=== PATIENT | male | born 2000 | race Caucasian/White ===

== ENCOUNTER 2021-03-13 18:46 | Emergency (ER) | payer OTHER, SELFPAY ==
[2021-03-13 18:53] VITALS: BP 136/73; PULSE 65; RESP 16; TEMP 36.4; O2SAT 100
[2021-03-13] MEDS: PROPARACAINE 0.5% OPHTH SOL 1 DROPS EYE-LEFT (20:14)
[2021-03-13] MEDS: FLUORESCEIN 1 MG STRIP EYE-BOTH (20:14)
--- NOTE | 2021-03-13 20:55 | ED.GENADULT ---
HPI - General Adult General Chief complaint: Eye Problems Stated complaint: lt eye probable foreign body Time Seen by Provider: 03/13/21 19:50 Source: patient Mode of arrival: Ambulatory History of Present Illness HPI narrative: Patient is a 20-year-old male here for evaluation of what he states is a foreign body to his left eye. He started noticing at earlier this afternoon. He has been working on his car the past couple days. When he started noticing it today he was not doing any hammering or drilling but he did do some of this yesterday. He does not were glasses or contacts. No prior eye surgery. Has not tried anything for the symptoms prior to arrival. Related Data Previous Rx's Medication Instructions Recorded erythromycin 5 mg/gram (0.5 %) eye 0.5 inch EYE-LEFT TID 3 Days #3.5 g 03/13/21 ointment Allergies Allergy/AdvReac Type Severity Reaction Status Date / Time No Known Drug Allergies Allergy Unverified 11/25/20 15:17 Review of Systems Constitutional Constitutional: Reports system reviewed and no additional complaints, except as documented Eyes Eyes: Reports as per HPI ENT Ears, Nose, Mouth, and Throat: Reports system reviewed and no additional complaints, except as documented Integumentary/Breasts Skin/Breast: Reports system reviewed and no additional complaints, except as documented Hematologic/Lymphatic On Anticoagulants: No Patient History Medical History Healthy adult Social History Smoking Status: Current every day smoker Smoking Status: Current every day smoker tobacco type: vaping Exam Initial Vital Signs Initial Vital Signs: Vital Signs Temperature 97.5 F L 03/13/21 18:53 Pulse Rate 65 03/13/21 18:53 Respiratory Rate 16 03/13/21 18:53 Blood Pressure 136/73 03/13/21 18:53 Pulse Oximetry 100 03/13/21 18:53 Const General: cooperative and healthy appearing HENVA Head: normal to inspection Nose: external nose normal Face and sinus: normal facial exam Eyes General: appearance normal, both eyes and all related structures Periorbital: periorbital findings normal Eyelids: eyelids normal Conjunctivae: conjunctivae normal Cornea: corneas abnormal on the left fluorescein used and foreign body metallic and with rust ring present and fluorescein used Pupils: PERRL EOM: EOM intact bilaterally Neck Neck: normal visual inspection Resp Effort & Inspection: normal respiratory effort Cardio Rate: regular rate Skin General: no rashes or lesions noted Neuro General: patient alert, patient awake and moves all extremities Extrem General: normal to inspection Psych Appearance: grossly normal Procedures Foreign Body EYE Time Out performed: Yes Location: eye (L) Topical anesthetic used: proparacaine Foreign body: metal Evidence of corneal penetration: No Technique: needle and electric jaime Procedure performed under: slit-lamp Post-procedure medication: ophthalmic antibiotic Patient tolerated procedure: well and no complications Course Orders Ordered: Discontinued Medications Erythromycin (Erythromycin Ophth 1 Gm Oint) 1 applic EYE-LEFT NOW ONE Stop: 03/13/21 20:56 Last Admin: 03/13/21 21:03 Dose: 1 applic Documented by: DAMION Fluorescein Sodium (Fluorescein 1 Mg Strip) 1 mg EYE-BOTH NOW ONE Stop: 03/13/21 19:51 Last Admin: 03/13/21 20:14 Dose: 1 mg Documented by: DAMION Proparacaine HCl (Proparacaine 0.5% Ophth Shanika) 1 drops EYE-LEFT NOW ONE Stop: 03/13/21 18:56 Last Admin: 03/13/21 20:14 Dose: 1 drop Documented by: DAMION Vital Signs Vital signs: Vital Signs - 8 hr 03/13/21 18:53 Temperature 97.5 F L Pulse Rate 65 Respiratory Rate 16 Blood Pressure 136/73 Pulse Oximetry 100 Medical Decision Making MDM Narrative Medical decision making narrative: Easily identifiable foreign body in the left eye. Is located at the 7 o'clock position. Does appear to be metal. Initial attempt to remove it with a cotton tip applicator was unsuccessful. It was then removed under direct visualization with the slit lamp with a needle and a bur. There was no residual rust ring. No other foreign bodies were found. Will place the patient on antibiotic ointment. He was given care instructions and return precautions. He expressed understanding and agreement. Discharge Plan Departure Patient Disposition: Home Clinical Impression: Foreign body in eye Instructions: Corneal Abrasion Activity Restrictions/Additional Instructions: There was a piece of metal in your left eye. We were able to successfully remove it. In the process we have created a corneal abrasion. We will which on antibiotic ointment. Please use it as directed. Return to the emergency department for any new or worsening symptoms Prescriptions: New erythromycin 5 mg/gram (0.5 %) ointment 0.5 inch EYE-LEFT TID 3 Days Qty: 3.5 RF: 0 Referrals: Pillo Shields MD [Primary Care Provider] -
[2021-03-13] MEDS: ERYTHROMYCIN OPHTH 1 GM OINT 1 APPLIC EYE-LEFT (21:03)
== END 2021-03-13 21:07 | disposition home or self-care (01) ==
PROVIDERS: Emergency Provider Emergency Medicine; Family Provider Pediatrics; PCP Pediatrics
DX: T15.92XA Foreign body on external eye, part unspecified, left eye, initial encounter (principal); W45.8XXA Other foreign body or object entering through skin, initial encounter
CPT/HCPCS: 65205; 99282; 99283